=== PATIENT | female | born 1945 | race Caucasian/White ===

== ENCOUNTER → 2017-02-23 | Outpatient (CLI) | payer MEDICARE, BC, MEDICAID ==
[~2017-02-23] MED LIST: ANAS1TAB8 PO; BENZ100C97 PO; CODE118S2 PO; ENOX100D SQ; GLIM1TAB2 PO; GLYC1DRO2 PO; HYDR12.523 PO; LEVO125T11 PO; MOME17SP2 NAS; NEOM28OI18 TOP; OLME20TA15 PO; PRED50TA PO; RANI-470 PO; WARF5TAB6 PO
--- NOTE | 2017-02-23 13:03 | DI ---
INDICATION: ITS.REASON: J06.9 COUGH PROCEDURE: CHEST 2-VIEWS UPRIGHT (PA \T\ LAT) Encounter: Initial Comparison: August 18, 2014 Findings: The lungs are stable in appearance without new focal airspace consolidation. There is no pleural effusion or pneumothorax. The heart size, pulmonary vascularity and mediastinal contours are unchanged. Right axillary surgical clips. Moderate to large hiatal hernia. Exaggerated thoracic kyphosis with mild scoliosis and multilevel degenerative change in the thoracolumbar spine. IMPRESSION: Stable appearance of the chest without acute cardiopulmonary disease. .
== END ==
LOC: IMA.CCC 12:33
PROVIDERS: ATTEND Nurse Practitioner Family
DX: R05 Cough (principal)